=== PATIENT | female | born 1995 | race Caucasian/White ===

== ENCOUNTER 2016-11-24 07:59 | Inpatient (IN) | payer OTHER ==
[~2016-11-24] VITALS: Ht 157.5 cm; Wt 83.9 kg
[~2016-11-24 07:59] MED LIST: ANTIVERT 25MG #1 PAC PO
[2016-11-24 08:45] LABS: ABSOLUTE BASOPHIL COUNT 0.1 /CUMM (0.0-0.2); ABSOLUTE EOSINOPHIL COUNT 0 /CUMM (0.0-0.7); ABSOLUTE GRANULOCYTE CT 9.8 /CUMM (1.4-6.5); ABSOLUTE LYMPH COUNT 1.9 /CUMM (1.2-3.4); ABSOLUTE MONOCYTE COUNT 0.6 /CUMM (0.10-0.60); BASOPHIL % 0.5 % (0.0-2.0); EOSINOPHIL % 0.3 % (0-5); GRANULOCYTE % 79.1 % (42.2-75.2); HEMATOCRIT 40.4 % (37-47); MEAN CORPUSCULAR HGB 32.1 PG (27.0-31.0); MEAN CORPUSCULAR HGB CONC 33.5 G/DL (33.0-37.0); MEAN CORPUSCULAR VOLUME 95.9 FL (81.0-99.0); MEAN PLATELET VOLUME 11.7 FL (7.4-10.4); PLATELET COUNT 201 /CUMM (130-400); RBC DISTRIBUTION WIDTH 13.8 % (11.5-14.5); RED BLOOD CELL CT 4.21 /CUMM (4.20-5.40); WHITE BLOOD CELL COUNT 12.4 /CUMM (4.8-10.8)
--- NOTE | 2016-11-25 09:41 | PN- Post Delivery/GYN ---
Subjective Subjective: no complaints Objective Last 24 Hrs of Vital Signs/I&O The paper chart Physical Exam: Vital signs stable Abdomen soft nontender Incision clean dry and intact Extremities negative edema negative Homans Lochia minimal Assessment/Plan Assessment/Plan Assessment status post section Plan advance diet advance ambulation check CB C
[2016-11-25 11:22] LABS: ABSOLUTE BASOPHIL COUNT 0 /CUMM (0.0-0.2); ABSOLUTE EOSINOPHIL COUNT 0 /CUMM (0.0-0.7); ABSOLUTE LYMPH COUNT 1.6 /CUMM (1.2-3.4); BASOPHIL % 0.3 % (0.0-2.0); EOSINOPHIL % 0 % (0-5); MEAN PLATELET VOLUME 12.9 FL (7.4-10.4)
[2016-11-25 11:50] LABS: ABSOLUTE GRANULOCYTE CT 11.9 /CUMM (1.4-6.5); ABSOLUTE MONOCYTE COUNT 0.6 /CUMM (0.10-0.60); MEAN CORPUSCULAR HGB 32.3 PG (27.0-31.0); MEAN CORPUSCULAR HGB CONC 33.7 G/DL (33.0-37.0); MEAN CORPUSCULAR VOLUME 95.8 FL (81.0-99.0); RBC DISTRIBUTION WIDTH 14.3 % (11.5-14.5); WHITE BLOOD CELL COUNT 14.1 /CUMM (4.8-10.8)
[2016-11-25 11:52] LABS: HEMATOCRIT 34.5 % (37-47)
[2016-11-25 12:30] LABS: PLATELET COUNT 193 /CUMM (130-400)
--- NOTE | 2016-11-26 19:24 | Operative Report ---
Operative/Inv Procedure Report Surgery Date: 11/24/16 Name of Procedure: Primary low flap transverse section Pre-Operative Diagnosis: Term nonreassuring heart tracing late decelerations Post-Operative Diagnosis: Same Estimated Blood Loss: 500 Surgeon/Cushion Maker: NIEVES BLANK,GURMEET Olivares Anesthesia: block Operative/Procedure Note Note: CU note patient was seen the operating room placed on position after adequate skin testing for spinal narcotic anesthesia patient placed in dorsal lithotomy a Meeks was placed sterilely patient tolerated that well patient was returned spine position skin testing form once again the abdomen was prepped and draped so fashion through Pfannenstiel skin incision skin was cut was carried down to rectus fascia which was cut in curvilinear fashion direction peritoneal cavity was entered high into the abdomen at this point the low blade the Sheila was placed lower and incision the visceral peritoneum the uterus was dissected anteriorly in the lower uterine segment after bladder flap had been developed uses neck entered with the back of knife dissected bluntly the membranes were ruptured using an Allis clamp infant was delivered over the abdominal wall the cord was wrapped around the body 1 was clamped and cut was handed marketing communications leader was waiting delivering to aid in resuscitation placenta was delivered after cord blood sampling was obtained IV were noted to be adherent membranes I a sharp curettage of the uterine lining was performed to remove those membranes hemostasis was apparent intravenous pedis and intramyometrial Pitocin I Methergine and Hemabate were used for uterine contractility which was apparent the uterus was oversewn running locking suture of 0 was indicated running locking suture of 0 was imbricated with interrupted [id number] for hemostasis the uterus was returned to abdominal cavity found to be hemostatic the abdomen was area close amounts once until clear the peritoneum was reapproximated 0 the fascia was reapproximated to continue sutures #1 at the end the case there was Bovie coagulation subcutaneous tissue skin was reapproximated consuelo sterile dressing was applied the counts were correct urine was clear mother and were transported to recovery room awake and alert
--- NOTE | 2016-11-26 19:41 | PN- Post Delivery/GYN ---
Subjective Subjective: NO COMPLAINTS Objective Last 24 Hrs of Vital Signs/I&O PER PAPER CHART Physical Exam: P ABD SOFT NT INCISION CDI FUNDUS FIRM NT EXT -EDEMA LEASANT WF Assessment/Plan Assessment/Plan ASSSESS S/P C/S PLAN CONT PPC
[2016-11-27] MEDS ORDERED: IBUPROFEN800 M1 PO (09:01)
[2016-11-27] MEDS ORDERED: PERCOCET 5-3251 EACH PO (09:01)
== END 2016-11-27 11:45 | DRG 540 ==
LOC: GNO 07:59
PROVIDERS: ADMIT Specialist
PROC: 10D00Z1 Extraction of Products of Conception, Low, Open Approach (ICD-10-PCS; principal; 2016-11-24)
DX: O76 Abnormality in fetal heart rate and rhythm complicating labor and delivery (principal); Z3A.40 40 weeks gestation of pregnancy; Z37.0 Single live birth
CPT/HCPCS: GNOS; 36415; 81001; 87086; 88307; J0690; J1650; J1885; J2210; J3105; J7120